=== PATIENT | female | born 1980 | race Caucasian/White ===

== ENCOUNTER 2017-05-01 17:00 | Emergency (ER) | payer OTHER ==
--- NOTE | 2017-05-01 18:52 | ERNOTE ---
ENT HPI Date of Service: 05/01/17 Presenting Symptoms: other - URI Time Seen by Provider: 05/01/17 18:33 Source: patient, RN notes reviewed Exam Limitations: no limitations - Immun/Allergies/Home Medications Immunizations: IMMUNIZATION HX Immunizations Up to Date Yes History of Influenza Vaccine No Allergies/Adverse Reactions: Allergies Allergy/AdvReac Type Severity Reaction Status Date / Time No Known Allergies Allergy Unverified 05/01/17 17:13 Home Medications: HOME MEDICATIONS Amox Tr/Potassium Clavulanate [Augmentin 875-125 Tablet] 875 mg PO Q12H #20 tab 05/01/17 [Last Taken Unknown] Loratadine [Claritin] 10 mg PO DAILY 05/01/17 [Last Taken Unknown] Methylphenidate HCl [Ritalin LA] 40 mg PO DAILY 05/01/17 [Last Taken Unknown] Mometasone Furoate [Nasonex] 17 gm NS DAILY 05/01/17 [Last Taken Unknown] Omeprazole 40 mg PO DAILY 05/01/17 [Last Taken Unknown] - History of Present Illness Narrative: 36 year old female presents to the ED for URI symptoms that began a few days ago. Her son is being seen for similar complaints. She has been taking Dayquil with some improvement. She reports having a fever of 101 at the beginning of the illness. Prearrival Treatment: Present: over the counter meds Prior Treament: Denies: recently seen Review of Systems - Review of Systems Constitutional: Present: fatigue, malaise EYE: Present: no symptoms reported ENT: Present: nose congestion, nasal drainage, sore throat. Absent: ear pain Respiratory: Present: cough. Absent: shortness of breath, wheezing Cardiology: Absent: chest pain, syncope Gastrointestinal/Abdominal: Absent: nausea, vomiting, abdominal pain Genitourinary: Absent: other - possible Musculoskeletal: Absent: muscle pain, neck pain Skin: Absent: rash, lesions Neurological: Present: headache. Absent: dizziness/light-headedness Endocrine: Present: no symptoms reported Hematologic/Lymphatic: Present: no symptoms reported Psych: Present: no symptoms reported - Patient's Past Medical History Patient History - Medical: No pertinent hx Patient History - Cardiac/Respiratory: No pertinent hx Patient History - Cancer: No Hx of Cancer Patient History - Surgical Procedures: D & C, Urology - Social History Living Situations: home Smoking Status: Never smoker Have you smoked in the past 12 months: No - Immunizations Immunizations Up to Date: Yes History of Influenza Vaccine: No Physical Exam - Physical Exam General Appearance: Present: wd/wn, alert, no apparent distress Head Exam: Present: normal inspection Eye Exam: Normal inspection: bilateral Ears, Nose, Throat: Present: nasal congestion, sinus pain/drainage, pharyngeal erythema. Absent: abnormal TM (R), abnormal TM (L), pharyngeal swelling Neck: Present: normal inspection, nontender, supple Respiratory: Present: no respiratory distress, normal breath sounds, no accessory muscle use, lungs clear Cardiovascular/Chest: Present: regular rate, rhythm, no murmur Extremity Exam: Present: normal inspection, normal range of motion, no edema Neurological Exam: Present: alert, oriented, normal mood/affect Skin Exam: Present: normal color, warm/dry ED Progress - Results and Orders Patient's Lab Results:: I have reviewed the patient's lab results. - Vital Signs Patient's Vital Signs:: I have reviewed the patient's vital signs. Vital Signs: Vital Signs 05/01/17 05/01/17 17:11 18:12 Temperature 36.6 C 36.6 C Pulse Rate 76 80 Respiratory 14 Rate Blood Pressure 111/63 125/68 O2 Sat by Pulse 100 100 Oximetry - Progress/Reassessment Chief Complaint: Sore Throat Progress:: Unchanged Departure Clinical Impression: Sinusitis, acute Qualifiers: Sinusitis location: unspecified location Recurrence: non-recurrent Qualified Code(s): J01.90 - Acute sinusitis, unspecified - Departure Disposition: Home self-care Condition: Good Instructions: Sinusitis, Adult, [id number] Additional Instructions: Start antibiotic if no improvement by mid-week Prescriptions: Amox Tr/Potassium Clavulanate [Augmentin 875-125 Tablet] 875 mg PO Q12H #20 tab
[2017-05-01 19:22] VITALS: BP 116/74
== END 2017-05-01 19:05 | disposition home or self-care (01) ==
LOC: ER 17:00
DX: J01.90 Acute sinusitis, unspecified (principal)